=== PATIENT | female | born 1990 | race African-American/Black ===

== ENCOUNTER 2017-03-02 20:15 | Emergency (ER) | payer SELFPAY ==
[~2017-03-02] VITALS: Ht 162.6 cm; Wt 108.9 kg
[~2017-03-02 20:15] MED LIST: ALBU8.5H6 IH; PENI500T PO
[2017-03-02 20:33] VITALS: BP 159/71
[2017-03-02] MEDS ORDERED: AMOX500C PO (21:08)
--- NOTE | 2017-03-02 21:09 | PHYS DOC ---
Past Medical History Past Medical History: No Pertinent History Past Surgical History: No Surgical History Alcohol Use: Occasionally Drug Use: None Adult General Chief Complaint Chief Complaint: SORE THROAT [facility] HPI Patient is a 26 year old female presents emergency department stating that she' s been having some tonsillar stones in which she is pulled off 20 of them today. She states that some of them have slight blood noted with them. She denies any lightheadedness dizziness nausea vomiting. She denies any fever, chills. Patient states that she is concerned with some any tonsillar stones as well as the small amount of bleeding. She denies having a ENT consult in the past. Patient does state that she has been fairly tired at times and feels that she needs to be evaluated. Review of Systems Review of Systems Constitutional: Denies fever or chills [] Eyes: Denies change in visual acuity, redness, or eye pain [] HENT: Denies nasal congestion or sore throat. C/o tonsil stones Respiratory: Denies cough or shortness of breath [] Cardiovascular: No additional information not addressed in HPI [] GI: Denies abdominal pain, nausea, vomiting, bloody stools or diarrhea [] : Denies dysuria or hematuria [] Musculoskeletal: Denies back pain or joint pain [] Integument: Denies rash or skin lesions [] Neurologic: Denies headache, focal weakness or sensory changes [] Allergies Allergies Allergies Coded Allergies Type Severity Reaction Last Updated Verified No Known Drug Allergies 10/07/13 No Physical Exam Physical Exam Constitutional: Well developed, well nourished, no acute distress, non-toxic appearance. [] HENT: Normocephalic, atraumatic, bilateral external ears normal, oropharynx moist, no oral exudates, nose normal. Bilateral tympanic membranes appear to be normal. Throat with tonsils with crepitus is noted in the areas no exudate noted. Eyes: PERRLA, EOMI, conjunctiva normal, no discharge. [] Neck: Normal range of motion, no tenderness, supple, no stridor. [] Cardiovascular:Heart rate regular rhythm, no murmur [] Lungs & Thorax: Bilateral breath sounds clear to auscultation [] Skin: Warm, dry, no erythema, no rash. [] Back: No tenderness Extremities: No tenderness, no cyanosis, no clubbing, ROM intact, no edema. [] Neurologic: Alert and oriented X 3, normal motor function, normal sensory function, no focal deficits noted. [] Psychologic: Affect normal, judgement normal, mood normal. [] Current Patient Data Vital Signs Vital Signs Date Time Temp Pulse Resp B/P (MAP) Pulse Ox O2 Delivery O2 Flow Rate FiO2 03/02/17 20:33 98.3 85 16 96 Room Air 98.3 EKG EKG [] Radiology/Procedures Radiology/Procedures [] Course & Med Decision Making Course & Med Decision Making Pertinent Labs and Imaging studies reviewed. (See chart for details) Actually for tonsil stones removed by RN. Rapid strep was negative. Patient will be covered with amoxicillin 500 mg twice a day for the next 10 days with recommendations to follow-up with ENT. She'll be provided with Dr. Huynh's name and number in which she can follow-up with. Also recommended warm salt water gargles 4 times a day. Patient will be discharged home in stable condition signs symptoms to return back to emergency department been provided. Patient agrees with discharge instructions treatment regimens and follow-up recommendations. [] Dragon Disclaimer Dragon Disclaimer This electronic medical record was generated, in whole or in part, using a voice recognition dictation system. Departure Departure Impression: Primary Impression: Tonsil stone Disposition: 01 HOME, SELF-CARE Condition: STABLE Referrals: NON,STAFF (PCP) Patient Instructions: Tonsillitis, [id number] Additional Instructions: Activity as tolerated. Tylenol or ibuprofen for pain and fever chills or generalized body aches and discomfort. Medication as prescribed. Warm salt water gargles 4 times a day. Follow-up with the ENT, Dr Swanson you may contact her [phone] when he called to make the appointment make sure you let her know that you're a resident at [facility]. Return back to emergency prior for signs and symptoms of become worse. Scripts Amoxicillin (AMOXICILLIN) 500 Mg Capsule 1 CAP PO BID, #20 CAP Prov: OPAL LASSITER APRN 03/02/17 OPAL LASSITER APRN March 02, 2017 21:09
[2017-03-03 10:18] LABS: NEGATIVE OBC STREP NEG; POSITIVE OBC STREP POS
== END 2017-03-02 21:12 | disposition home or self-care (01) ==
LOC: ER 20:15
DX: J35.8 Other chronic diseases of tonsils and adenoids (principal); J02.9 Acute pharyngitis, unspecified
CPT/HCPCS: 87070; 87880; 99283